=== PATIENT | female | born 1950 | race Caucasian/White ===

== ENCOUNTER 2020-02-15 13:26 | Inpatient (IN) ==
[~2020-02-15 13:26] MED LIST: HEPARIN (PORCINE) 1000 UNIT/ML 10 ML (CATH LAB USE ONLY) ONE; MIDAZOLAM HCL 1 MG/ML 2ML VIAL ONE; NITROGLYCERIN/D5W 100MCG/ML 20ML SYR ONE; NiCARDipine HCL INJ 2.5 MG/ML 10 ML AMP ONE; fentaNYL citrate 100 MCG/2 ML VIAL ONE
[2020-02-15] MEDS ORDERED: HEPARIN SOD 5,000 UNIT/0.5 ML VIAL ONE (13:30)
[2020-02-15] MEDS ORDERED: HEPARIN SOD (PORCINE) 1000 UNIT/ML 10 ML VIAL IV ONE (13:31)
[2020-02-15] MEDS ORDERED: ONDANSETRON INJ 2 MG/ML 2 ML VIAL IV STA (13:31)
[2020-02-15] MEDS ORDERED: fentaNYL citrate 100 MCG/2 ML VIAL IV STA (13:32)
--- NOTE | 2020-02-15 13:46 | Emergency Department Note ---
History of Present Illness General Chief complaint: Heart Alert Source: patient Mode of arrival: EMS History of Present Illness Provider complaint: Chest pain Onset (ago): hour(s) Location: chest and right Radiation: non-radiation Severity: severe Pain Consistency: + constant Current Pain Intensity: 8 Quality: + sharp Relieved By: + medication Associated symptoms: + nausea/vomiting and + shortness of breath; no cough, no fever/chills and no headaches This is a 70-year-old female who presents with chest pain starting at noon tod ay. She describes pain as a sharp pain on the right side of her chest. She rates an 8 out of 10 in severity. It is slightly better with the medication she was given by EMS including morphine, fentanyl and Zofran. It is associated with shortness of breath and vomiting. She denies any prior history of cardiac disease. She is not a smoker. She has a history of anxiety and hypothyroidism. Per EMS the patient was initially given atropine 0.5 mg IV as she was bradycardic and hypotensive. Her heart rate went up to 70 after that and she became normotensive. She was also given normal saline 800 mL IV prior to arrival. For her chest pain she was given morphine IV and Zofran IV initially. She had minimal relief of her pain and they did give her fentanyl 50 mcg IV per my order. The patient denies any fever, cough or cold symptoms or known exposure to COVID-19. She has had no abdominal pain, leg swelling or pain. Allergies Allergy/AdvReac Type Severity Reaction Status Date / Time Sulfa (Sulfonamide Allergy Intermediate Rash Verified 02/15/20 15:24 Antibiotics) Past Med/Surg History Family History (Updated 02/15/20 @ 16:26 by Ammon Domínguez DO) Other Coronary heart disease Hypertension Social History Preferred Language: Malay Communication Ability: Effective Election Assistant Required: No Beliefs That Will Affect Care: None marital status: Current Living Situation: Spouse Other Information That Helps Us Care for You: No Feels Safe at Home: Yes Safety Concerns: Feels Safe At This Time Smoking Status: Former smoker Second Hand Exposure: Yes ; Tobacco Cessation Education Requested by Patient: No Hx Alcohol Use: No Hx Substance Use: No Review of Systems See HPI for pertinent positives & negatives. and A total of 10 systems reviewed and were otherwise negative Physical Exam Vital Signs Vital Signs - 24 hr 02/15/20 13:31 Pulse Rate 77 Respiratory Rate 21 Blood Pressure 141/88 H Blood Pressure Mean 105 Blood Pressure Position Lying Pulse Oximetry 95 Oxygen Delivery Method Room Air Sepsis Recent Fever Within 48 Hours No Sepsis Action Taken by Nursing No Action Required Constitutional: Vital signs reviewed. Moaning. Vomited twice. Eyes: Pupils are equal round reactive to light. Conjunctiva are noninjected. ENT: Pharynx is clear without erythema or exudate. Mucous membranes are moist. Neck supple without meningeal signs. Respiratory: Clear to auscultation bilaterally. Breath sounds are equal bilaterally. Cardiovascular: Irregularly irregular rhythm. Normal rate. No rubs or gallops. GI: Soft, nondistended and nontender. Bowel sounds are present. Musculoskeletal: No peripheral edema. No lower extremity tenderness. Integumentary: No cyanosis. or jaundice. Neurological: The patient is awake and alert. No focal deficits. Psychiatric: Anxious Course Administered Medications Discontinued Medications Atropine Sulfate (Atropine Sulfate) Confirm Administered Dose 1 mg IV .STK-MED ONE Stop: 02/15/20 13:53 Last Admin: 02/15/20 14:18 Dose: Not Given Documented by: [id number] Clopidogrel Bisulfate (Plavix) Confirm Administered Dose 600 mg .ROUTE .STK-MED ONE Stop: 02/15/20 14:20 Last Admin: 02/15/20 14:29 Dose: 600 mg Documented by: [id number] Fentanyl Citrate (Fentanyl Citrate) Confirm Administered Dose 100 mcg .ROUTE .STK-MED ONE Stop: 02/15/20 13:26 Last Admin: 02/15/20 14:17 Dose: 25 mcg Documented by: [id number] Fentanyl Citrate (Fentanyl Citrate) 50 mcg IV NOW STA Stop: 02/15/20 13:33 Last Admin: 02/15/20 13:38 Dose: 50 mcg Documented by: [id number] Heparin Sodium (Porcine) (Heparin Iv Bolus ([employer]aurant [employer] Use Only)) Confirm Administered Dose 10,000 units .ROUTE .STK-MED ONE Stop: 02/15/20 13:26 Last Admin: 02/15/20 14:17 Dose: 5,000 units Documented by: [id number] Heparin Sodium (Porcine) (Heparin Sodium (Porcine)) Confirm Administered Dose 5,000 units .ROUTE .STK-MED ONE Stop: 02/15/20 13:31 Last Admin: 02/15/20 15:55 Dose: Not Given Documented by: [id number] Heparin Sodium (Porcine) (Heparin Iv Bolus) 3,000 units IV ONE ONE Stop: 02/15/20 13:32 Last Admin: 02/15/20 13:39 Dose: 3,000 units Documented by: [id number] Cosigned by: [id number] Heparin Sodium/Sodium Chloride (Heparin/Nss 1000 Unit/500ml Flush Bag) Confirm Administered Dose 3,000 units IV .STK-MED ONE Stop: 02/15/20 13:26 Last Admin: 02/15/20 14:17 Dose: 3,000 units Documented by: [id number] Metoprolol Tartrate (Lopressor) Confirm Administered Dose 5 mg IV .STK-MED ONE Stop: 02/15/20 14:00 Last Admin: 02/15/20 14:18 Dose: 2.5 mg Documented by: [id number] Midazolam HCl (Versed) Confirm Administered Dose 2 mg .ROUTE .STK-MED ONE Stop: 02/15/20 13:26 Last Admin: 02/15/20 14:17 Dose: 1 mg Documented by: [id number] Nicardipine HCl (Cardene) Confirm Administered Dose 25 mg .ROUTE .STK-MED ONE Stop: 02/15/20 13:26 Last Admin: 02/15/20 14:16 Dose: 25 mg Documented by: [id number] Nitroglycerin/Dextrose (Nitroglycerin/D5w 100 Mcg/Ml 20ml Syringe) Confirm Administered Dose 2,000 mcg .ROUTE .STK-MED ONE Stop: 02/15/20 13:26 Last Admin: 02/15/20 14:17 Dose: 2,000 mcg Documented by: [id number] Norepinephrine Bitartrate (Levophed ([employer] Use Only)) Confirm Administered Dose 8 mg .ROUTE .STK-MED ONE Stop: 02/15/20 13:54 Last Admin: 02/15/20 14:19 Dose: Not Given Documented by: [id number] Ondansetron HCl (Zofran) 4 mg IV NOW STA Stop: 02/15/20 13:32 Last Admin: 02/15/20 13:38 Dose: 4 mg Documented by: [id number] Critical Care Time Critical Care Time: Yes Total Critical Care Time: 32 I have personally spent approximately, but not less than, 32 minutes of critical care time in the direct management of this patient with STEMI and bradycardia. This includes bedside care, interpretation of diagnostic studies, and testing, discussion with consultants, patient, and family members, and other required patient management activities. These minutes are in excess of all separately billable procedures. Medical Decision Making Differential Diagnosis STEMI, Takatsubo, aortic dissection, aortic aneurysm, RCA infarct, dysrhythmia Medical Records Attestation: I reviewed the patient's medical records. I did perform a limited focused review of portions of the patient's old chart on the electronic medical record. The patient has had no prior visits to this hospital. Home Medications Current Medication List: was personally reviewed by me Laboratory Data Attestation: I reviewed the patient's lab results. Result diagrams: 02/15/20 13:35 02/15/20 13:35 Lab Results 02/15/20 02/15/20 02/15/20 Range/Units 13:35 13:35 13:35 WBC 7.81 (4.8-10.8) K/uL RBC 4.58 (4.2-5.4) M/uL Hgb 13.5 (12.0-16.0) g/dL POC Hgb (12.0-16.0) g/dl Hct 42.9 (37-47) % POC Hct (37-47) % MCV 93.7 (80-100) fL MCH 29.5 (25-34) pg MCHC 31.5 L (32-36) g/dL RDW Std Deviation 45.2 (36.4-46.3) fL RDW Coeff of Eric 13.3 (11.5-14.5) % Plt Count 246 (130-400) K/uL MPV 9.8 (7.4-10.4) fL Immature Gran % (Auto) 0.4 % Neut % (Auto) 64.4 % Lymph % (Auto) 26.5 % [place] % (Auto) 7.7 % Eos % (Auto) 0.6 % Baso % (Auto) 0.4 % Immature Gran # (Auto) 0.03 H (0.00-0.02) K/uL Neut # (Auto) 5.03 (1.4-6.5) K/uL Lymph # (Auto) 2.07 (1.2-3.4) K/uL [place] # (Auto) 0.60 H (0.11-0.59) K/uL Eos # (Auto) 0.05 (0-0.5) K/uL Baso # (Auto) 0.03 (0-0.2) K/uL PT 10.5 (9.0-12.0) Seconds INR 1.0 (0.9-1.1) APTT 28.1 (21.0-31.0) Seconds PTT Ratio 1.0 Activ Coag Time Kaolin (94-140) SECONDS POC Sodium (135-144) mmol/L Sodium 142 (136-145) mmol/L POC Potassium (3.3-5.0) mmol/L Potassium 4.0 (3.5-5.1) mmol/L POC Chloride (101-112) mmol/L Chloride 111 H (98-107) mmol/L Carbon Dioxide 23 (21-32) mmol/L POC Total CO2 (24-31) mmol/L Anion Gap 8.0 (3-11) POC Anion Gap (16-25) mmol/L POC BUN (7-18) mg/dl BUN 13 (7-18) mg/dl Creatinine 0.74 (0.6-1.2) mg/dl POC Creatinine (0.6-1.3) mg/dl Est Cr Clr Drug Dosing Not Reportable Est GFR ( Amer) 94.5 Est GFR (Non-Af Amer) 81.5 BUN/Creatinine Ratio 17.3 (10-20) Glucose 115 H (70-99) mg/dl POC Glucose (other) (70-99) mg/dl Calcium 8.0 L (8.5-10.1) mg/dl POC Ioniz Calcium Maria E (1.12-1.32) mmol/l Magnesium 2.0 (1.8-2.4) mg/dl Total Bilirubin 0.4 (0.2-1) mg/dl AST 21 (15-37) U/L ALT 22 (12-78) U/L Alkaline Phosphatase 95 (45-117) U/L Total Creatine Kinase 66 (26-192) U/L CK-MB (CK-2) < 1.0 (0.5-3.6) ng/ml CK/CKMB % Calc TNP Troponin I < 0.015 (0-0.045) ng/ml Total Protein 6.9 (6.4-8.2) gm/dl Albumin 3.4 (3.4-5.0) gm/dl Globulin 3.5 (2.5-4.0) gm/dl Albumin/Globulin Ratio 1.0 (0.9-2) Lipase 49 L (73-393) U/L TSH 0.401 (0.300-4.500) uIu/ml Specimen Hemolysis 02/15/20 02/15/20 Range/Units 13:40 13:59 WBC (4.8-10.8) K/uL RBC (4.2-5.4) M/uL Hgb (12.0-16.0) g/dL POC Hgb 13.6 (12.0-16.0) g/dl Hct (37-47) % POC Hct 40 (37-47) % MCV (80-100) fL MCH (25-34) pg MCHC (32-36) g/dL RDW Std Deviation (36.4-46.3) fL RDW Coeff of Eric (11.5-14.5) % Plt Count (130-400) K/uL MPV (7.4-10.4) fL Immature Gran % (Auto) % Neut % (Auto) % Lymph % (Auto) % [place] % (Auto) % Eos % (Auto) % Baso % (Auto) % Immature Gran # (Auto) (0.00-0.02) K/uL Neut # (Auto) (1.4-6.5) K/uL Lymph # (Auto) (1.2-3.4) K/uL [place] # (Auto) (0.11-0.59) K/uL Eos # (Auto) (0-0.5) K/uL Baso # (Auto) (0-0.2) K/uL PT (9.0-12.0) Seconds INR (0.9-1.1) APTT (21.0-31.0) Seconds PTT Ratio Activ Coag Time Kaolin 323 H (94-140) SECONDS POC Sodium 142 (135-144) mmol/L Sodium (136-145) mmol/L POC Potassium 4.0 (3.3-5.0) mmol/L Potassium (3.5-5.1) mmol/L POC Chloride 107 (101-112) mmol/L Chloride (98-107) mmol/L Carbon Dioxide (21-32) mmol/L POC Total CO2 23 L (24-31) mmol/L Anion Gap (3-11) POC Anion Gap 17.0 (16-25) mmol/L POC BUN 14 (7-18) mg/dl BUN (7-18) mg/dl Creatinine (0.6-1.2) mg/dl POC Creatinine 0.7 (0.6-1.3) mg/dl Est Cr Clr Drug Dosing Est GFR ( Amer) Est GFR (Non-Af Amer) BUN/Creatinine Ratio (10-20) Glucose (70-99) mg/dl POC Glucose (other) 121 H (70-99) mg/dl Calcium (8.5-10.1) mg/dl POC Ioniz Calcium Maria E 1.06 L (1.12-1.32) mmol/l Magnesium (1.8-2.4) mg/dl Total Bilirubin (0.2-1) mg/dl AST (15-37) U/L ALT (12-78) U/L Alkaline Phosphatase (45-117) U/L Total Creatine Kinase (26-192) U/L CK-MB (CK-2) (0.5-3.6) ng/ml CK/CKMB % Calc Troponin I (0-0.045) ng/ml Total Protein (6.4-8.2) gm/dl Albumin (3.4-5.0) gm/dl Globulin (2.5-4.0) gm/dl Albumin/Globulin Ratio (0.9-2) Lipase (73-393) U/L TSH (0.300-4.500) uIu/ml Specimen Hemolysis ECG Data Attestation: I personally reviewed and interpreted this ECG as follows: Indication: + chest pain Rate (beats per minute): 87 Rhythm: + atrial fibrillation ECG ST segments: + ST depression (Lateral, anteriorly), + ST elevation (Inferior) and + T-wave inversions ECG Findings: no PVCs Comparison ECG Date: no prior available Blood Pressure Blood Pressure Findings: Elevated blood pressure Blood Pressure Disposition: further management by hospitalist [facility] Narrative I did provide prehospital medical command for the patient. The patient was approximately 10 to 15 minutes out. She initially was bradycardic and hypotensive and was given atropine 0.5 mg IV. She was also given normal saline IV. Her blood pressure normalized. Her heart rate went into the 70s. She was given IV morphine and Zofran prior to the call. She was also given aspirin. I did recommend additional IV fentanyl should she have persistent pain but recommended against further morphine/atropine or any nitroglycerin. They could not transmit the prehospital EKG and so the ribbon cutter was notified. Dr. George was in a procedure and so Dr. Rapp of cardiology would see the patient in the ED in his place. I did evaluate the patient immediately on arrival as noted above. Her left AC IV came out while moving the patient. Additional IV access was established. I did treat her with IV fentanyl and Zofran as she is vomiting and still having 8 out of [address] an order for continuous cardiac monitoring. The monitor showed normal sinus rhythm rate of 90. I did order and personally review the patient's 12-lead EKG as described above. She has changes consistent with an inferior wall STEMI. I did order and review the patient's blood work as noted in the electronic medical record. CBC is unremarkable without leukocytosis or anemia. Electrolytes are unremarkable other than a chloride of 111. Troponin is negative. She has mild hypocalcemia. Dr. Alexander did evaluate the patient in the ED as well. He recommended giving her IV heparin and the patient would go directly to the cardiac [employer]. I did order 3000 units of IV heparin. The patient was taken emergently for cardiac catheterization. Impression & Plan STEMI (ST elevation myocardial infarction), Bradycardia Discharge Plan Visit Data *Final* Discharge Date/Time: 02/15/20 13:44 Chief Complaint: Heart Alert ED Provider: Sang Pedersen Discharge Problem: STEMI (ST elevation myocardial infarction), Bradycardia Patient Disposition: Still a Patient Discharge Instructions Interventions: ED Discharge Assessment Last Done: 02/15/20 13:44 Discharge Problem: STEMI (ST elevation myocardial infarction) Qualifiers: Involved coronary artery: right coronary artery Qualified Code(s): I21.11 - ST elevation (STEMI) myocardial infarction involving right coronary artery
[2020-02-15] MEDS ORDERED: ATROPINE SULFATE 0.1 MG/ML 10ML SYR IV ONE (13:52)
[2020-02-15 13:53] LABS: iSTAT Creatinine 0.7 mg/dl (0.6-1.3); iSTAT Hemoglobin 13.6 g/dl (12.0-16.0); iSTAT Ionized Calcium 1.06 mmol/l (1.12-1.32)
[2020-02-15] MEDS ORDERED: NOREPINEPHRINE BITARTRATE 1 MG/ML 4 ML VIAL (CATH LAB USE ONLY) ONE (13:53)
[2020-02-15 13:56] LABS: Basophils # (auto) 0.03 K/uL (0-0.2); Basophils % (auto) 0.4 %; Eosinophils # (auto) 0.05 K/uL (0-0.5); Eosinophils % (auto) 0.6 %; Hematocrit (blood only) 42.9 % (37-47); Hemoglobin 13.5 g/dL (12.0-16.0); Immature Granulocytes # (auto) 0.03 K/uL (0.00-0.02); Immature Granulocytes % (auto) 0.4 %; Lymphocytes # (auto) 2.07 K/uL (1.2-3.4); Lymphocytes % (auto) 26.5 %; Mean Corpuscular Hemoglobin 29.5 pg (25-34); Mean Corpuscular Hgb Conc 31.5 g/dL (32-36); Mean Corpuscular Volume 93.7 fL (80-100); Mean Platelet Volume 9.8 fL (7.4-10.4); Monocytes % (auto) 7.7 %; Neutrophils # (auto) 5.03 K/uL (1.4-6.5); Neutrophils % (auto) 64.4 %; Platelet Count 246 K/uL (130-400); RDW Coefficient of Variation 13.3 % (11.5-14.5); RDW Standard Deviation 45.2 fL (36.4-46.3); Red Blood Count 4.58 M/uL (4.2-5.4); White Blood Count 7.81 K/uL (4.8-10.8)
[2020-02-15] MEDS ORDERED: METOPROLOL TARTRATE 1 MG/ML VIAL IV ONE (13:59)
[2020-02-15] MEDS ORDERED: CLOPIDOGREL BISULFATE 300 MG TAB ONE (14:19)
[2020-02-15 14:21] LABS: Partial Thromboplastin Time 28.1 Seconds (21.0-31.0); Prothrombin Time 10.5 Seconds (9.0-12.0)
[2020-02-15 14:23] LABS: Alanine Aminotransferase 22 U/L (12-78); Albumin Level 3.4 gm/dl (3.4-5.0); Aspartate Aminotransferase 21 U/L (15-37); BUN Creatinine Ratio 17.3 (10-20); Blood Urea Nitrogen 13 mg/dl (7-18); Carbon Dioxide 23 mmol/L (21-32); Chloride 111 mmol/L (98-107); Est GFR (African American) 94.5; Est GFR (Non-African American) 81.5; Glucose 115 mg/dl (70-99); Lipase 49 U/L (73-393); Sodium 142 mmol/L (136-145)
--- NOTE | 2020-02-15 14:25 | Cardiology Consultation ---
Date of Consultation February 15, 2020 Assessment & Plan (1) S/P right coronary artery (RCA) stent placement: (2) Atrial fibrillation: ASSESSMENT/PLAN: 1. Inferior STEMI: Symptoms and finding on ECG suggest RCA STEMI. In the ER, recommend heparin 3000 units IV x1. Nitroglycerin was not given as she demonstrated signs and symptoms of inferior infarct. Continue aspirin. Emergent cardiac catheterization recommended. Risks and benefits of the procedure were discussed with her in detail. Her was contacted via telephone to make him aware as well. She was promptly taken to the cardiac catheterization lab. 2. Atrial fibrillation: In this is not part of her medical history and may be due to the fact that she was actively ischemic. She had received atropine in the field for bradycardia. This will likely be self limited. Continue to monitor. 3. Disposition: Emergent cardiac catheterization for inferior STEMI. Dr. George of interventional Cardiology was contacted and patient care discussed. Patient care discussed with emergency department physician, Dr. Pedersen. Addendum: Cardiac catheterization demonstrated RCA occlusion. She underwent PCI by Dr. George. Her was personally updated via telephone and any questions were answered. Critical care team notified (Rick Mcintosh). Dr. Busch (Hospitalist attending) was contacted and plan of care discussed. Recommend dual anti- platelet therapy as outlined by Interventional Cardiology, recommend high-intensity statin therapy, beta-iliana, and MATA-inhibitor as tolerated. Recommend echocardiogram. She was transferred to the ICU. 40 minutes critical care time spent, including time spent in direct management of her STEMI, as well as coordinating care with multiple providers and updating family. History of Present Illness Reason for Consultation: Inferior STEMI "Heart Alert" Requesting Physician: Dr. Pedersen Attending Physician: Arslan George MD History of Present Illness Mrs. Hart is a pleasant 70-year-old female with a history significant for chronic back pain and hypothyroidism. She called EMS earlier today with chest pain and was found to have inferior ST elevations on ECG performed in the field. The decision was made to transfer her to [facility] via helicopter as a heart alert concerning for RCA STEMI. In the field, she was noted to be hypotensive and received normal saline 800 mL. She developed bradycardia with heart rates in the 40s and received atropine 0.5 mg which improved her heart rate. She received aspirin 325 mg as well as morphine for pain control. She states that yesterday she had intermittent chest discomfort throughout the day and did not feel well. Then today at approximately noon, she had a sharp, severe pain in her chest that radiated to the right side of her chest. She was short of breath. She denies syncope, near syncope, palpitations. She denies fevers, chills, or bleeding such as melena, hematochezia, or hematuria. While in the emergency department, she developed nausea and vomiting. When connected to telemetry, it was noted that she was in atrial fibrillation with heart rate in the 70s. ECG done in the emergency department once again demonstrated inferior ST elevations, and atrial fibrillation as the rhythm. She has not eaten since last evening. Review of systems: As above. Review of systems otherwise negative/unremarkable. Family history: No known premature CAD. Social history: She denies tobacco or alcohol abuse. She is and lives with her at home (Javier). They have 4 children. She is unaccompanied. Allergies Allergy/AdvReac Type Severity Reaction Status Date / Time Sulfa (Sulfonamide Allergy Intermediate Rash Verified 02/15/20 15:24 Antibiotics) Patient History Family History (Updated 02/15/20 @ 16:26 by Ammon Domínguez DO) Other Coronary heart disease Hypertension Social History Preferred Language: Thai Communication Ability: Effective Paper Feeder Required: No Beliefs That Will Affect Care: None marital status: Current Living Situation: Spouse Other Information That Helps Us Care for You: No Feels Safe at Home: Yes Safety Concerns: Feels Safe At This Time Smoking Status: Former smoker Second Hand Exposure: Yes ; Tobacco Cessation Education Requested by Patient: No Hx Alcohol Use: No Hx Substance Use: No Physical Exam Physical Exam: Gen.: She appears uncomfortable and in some degree of distress. Alert and oriented. HEENT: Anicteric sclera. Neck: No JVD. Cardiac: No ventricular heave. Irregularly regular. Normal S1-S2. No murmurs, r ubs, or gallops. Pulmonary: Clear to auscultation bilaterally without wheezes, rales, or rhonchi. Abdomen: Soft, nontender, nondistended, with normoactive bowel sounds. No bruits noted. Extremities: 2+ radial pulses bilaterally. 2+ posterior tibialis pulses bilaterally. No edema or cyanosis. Psychiatric: Affect appears appropriate. Results & Data ([facility]) Vital Signs (Past 12 Hours) Vital Signs Pulse Resp BP Pulse Ox 02/15/20 13:31 77 21 141/88 H 95 Laboratory Results Laboratory Results - last 24 hr 02/15/20 02/15/20 02/15/20 13:35 13:35 13:35 WBC 7.81 RBC 4.58 Hgb 13.5 POC Hgb Hct 42.9 POC Hct MCV 93.7 MCH 29.5 MCHC 31.5 L RDW Std Deviation 45.2 RDW Coeff of Eric 13.3 Plt Count 246 MPV 9.8 Immature Gran % (Auto) 0.4 Neut % (Auto) 64.4 Lymph % (Auto) 26.5 [place] % (Auto) 7.7 Eos % (Auto) 0.6 Baso % (Auto) 0.4 Immature Gran # (Auto) 0.03 H Neut # (Auto) 5.03 Lymph # (Auto) 2.07 [place] # (Auto) 0.60 H Eos # (Auto) 0.05 Baso # (Auto) 0.03 PT 10.5 INR 1.0 APTT 28.1 PTT Ratio 1.0 Activ Coag Time Kaolin POC Sodium Sodium 142 POC Potassium Potassium 4.0 POC Chloride Chloride 111 H Carbon Dioxide 23 POC Total CO2 Anion Gap 8.0 POC Anion Gap POC BUN BUN 13 Creatinine 0.74 POC Creatinine Est Cr Clr Drug Dosing Not Reportable Est GFR ( Amer) 94.5 Est GFR (Non-Af Amer) 81.5 BUN/Creatinine Ratio 17.3 Glucose 115 H POC Glucose (other) Calcium 8.0 L POC Ioniz Calcium Maria E Magnesium 2.0 Total Bilirubin Pending AST 21 ALT 22 Alkaline Phosphatase Pending Total Creatine Kinase Pending CK-MB (CK-2) Pending Troponin I Pending Total Protein Pending Albumin 3.4 Globulin Pending Albumin/Globulin Ratio Pending Lipase 49 L TSH Pending Specimen Hemolysis 02/15/20 02/15/20 13:40 13:59 WBC RBC Hgb POC Hgb 13.6 Hct POC Hct 40 MCV MCH MCHC RDW Std Deviation RDW Coeff of Eric Plt Count MPV Immature Gran % (Auto) Neut % (Auto) Lymph % (Auto) [place] % (Auto) Eos % (Auto) Baso % (Auto) Immature Gran # (Auto) Neut # (Auto) Lymph # (Auto) [place] # (Auto) Eos # (Auto) Baso # (Auto) PT INR APTT PTT Ratio Activ Coag Time Kaolin 323 H POC Sodium 142 Sodium POC Potassium 4.0 Potassium POC Chloride 107 Chloride Carbon Dioxide POC Total CO2 23 L Anion Gap POC Anion Gap 17.0 POC BUN 14 BUN Creatinine POC Creatinine 0.7 Est Cr Clr Drug Dosing Est GFR ( Amer) Est GFR (Non-Af Amer) BUN/Creatinine Ratio Glucose POC Glucose (other) 121 H Calcium POC Ioniz Calcium Maria E 1.06 L Magnesium Total Bilirubin AST ALT Alkaline Phosphatase Total Creatine Kinase CK-MB (CK-2) Troponin I Total Protein Albumin Globulin Albumin/Globulin Ratio Lipase TSH Specimen Hemolysis Diagnostic Findings Telemetry strip performed in the field personally reviewed: Inferior ST elevation. ECGs personally reviewed: ECG 09/10/2019 [facility]: Sinus rhythm 70 bpm. Incomplete right bundle branch block. ECG performed in the ER 02/15/2020 personally reviewed: Atrial fibrillation. Inferior ST elevation. PG Care Time/CCT Total # of Minutes Spent Total Time Spent with Patient: Total time spent is greater than 50% in coordination of care (as documented) at patient's floor/unit and/or counseling patient: Critical Care Time: Yes Total Critical Care Time: 40 Coding Level of Care Code None Diagnoses S/P right coronary artery (RCA) stent placement Z95.5 Atrial fibrillation I48.91 Additional Codes Critical Care Time - Critical Care Time: Yes ([id number]) Comment CRITICAL CARE [id number] 40 MIN
[2020-02-15 14:38] LABS: Alkaline Phosphatase 95 U/L (45-117); Bilirubin,Total 0.4 mg/dl (0.2-1); Creatine Kinase 66 U/L (26-192); Creatine Kinase MB < 1.0 ng/ml (0.5-3.6); Globulin 3.5 gm/dl (2.5-4.0); Thyroid Stimulating Hormone 0.401 uIu/ml (0.300-4.500); Total Protein 6.9 gm/dl (6.4-8.2); Troponin I < 0.015 ng/ml (0-0.045)
[2020-02-15] MEDS ORDERED: ICU PROTOCOL FOR HYPERGLYCEMIA PRN (14:38)
--- NOTE | 2020-02-15 14:41 | History & Physical Report ---
Date of Service February 15, 2020 Assessment & Plan (1) STEMI (ST elevation myocardial infarction): (2) S/P right coronary artery (RCA) stent placement: History of Present Illness Primary Care Provider: NO PCP Past Med/Surg History Medical History Anxiety Hypothyroidism Social History Preferred Language: Cypriot marital status: Current Living Situation: Spouse Feels Safe at Home: Yes Smoking Status: Never smoker Results & Data Results & Data ([facility]) Vital Signs (Past 12 Hours) Vital Signs Pulse Resp BP Pulse Ox 02/15/20 14:18 120 H 140/80 02/15/20 13:31 77 21 141/88 H 95 Code Status & VTE Plan VTE Prophylaxis Plan VTE Prophylaxis will be ordered: Yes PG Care Time/CCT Total # of Minutes Spent Total Time Spent with Patient: Total time spent is greater than 50% in coordination of care (as documented) at patient's floor/unit and/or counseling patient: Coding Diagnoses STEMI (ST elevation myocardial infarction) I21.3 S/P right coronary artery (RCA) stent placement Z95.5
[2020-02-15] MEDS ORDERED: ONDANSETRON INJ 2 MG/ML 2 ML VIAL IV PRN (14:50)
[2020-02-15] MEDS ORDERED: NITROGLYCERIN SL 0.4 MG/TAB TAB SL PRN (14:50)
--- NOTE | 2020-02-15 14:59 | Cardiac Catheterization ---
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 Cardiac Status Clinical evaluation leading to the procedure CAD Presenation: STEMI Anginal Classification: CCS IV Heart Failure: No Cardiogenic Shock within 24 Hours: No Cardiac Arrest within 24 Hours: No Imaging Studies Past 6 Months: No Stress Studies Past 6 Months: No Diagnostic Physicians Name: Arslan George MD Status: Emergency Closure Device Percutaneous Entry Location: Radial Closure Device: Radial Band Recommendations: PCI without planned CABG PCI Indication: Immediate PCI for STEMI Lesion Segment Name: mid RCA Culprit Artery: Yes Stenosis Prior to Rx (%): 100 Chronic Total Occlusion: No IVUS: No FFR: No Pre-Procedure JIMBO Flow: 0 Previously Treated Lesion: No Lesion Complexity: Non-High/Non-C Lesion Length (mm): 15 Thrombus Present: Yes Bifurcation Lesion: No Guidewire Across Lesion: Stenosis Post-Procedure (%): 0 Post-Procedure JIMBO Flow: 3 Devices(s) Deployed: Yes Yes Intraprocedure Events Significant Disection: No Perforation: No Cardiac Cath Procedure Full Procedure Date February 15, 2020 Pre-Procedure Diagnosis Pre-Procedure Diagnosis: STEMI AUC Score AUC Score: 9 Post-Procedure Diagnosis Post-Procedure Diagnosis: Severe CAD, Successful PCI and Normal Intracardiac Pressures Procedure(s) Performed Procedure(s) Performed: Coronary Angiography, Left Heart Cath and Drug Eluting Stent Vmware Architect Arslan George MD Try On Baster(s) Myla Estimated Blood Loss Estimated Blood Loss: 10 Medication(s) Medication(s): Fentanyl, Heparin, Lidocaine 1%, Nicardipine, Nitroglycerin and Versed Summary of Findings Indication: STEMI/Heart Alert Access: 6Fr slender right radial artery Catheters: Ikari 3.5 guide, JL3.5, pigtail Findings: LM - Angiographically normal LAD - Medium caliber, angiographically normal Circumflex - Small, angiographically normal RCA - Dominant, mild diffuse proximal disease, 100% mid RCA acute occlusion. LVEDP - 12 -- PCI -- Antithrombotic therapy: Heparin, Clopidogrel Procedure: RCA cannulated with Ikari 3.5 guide BMW wire passed across lesion into distal vessel Mid RCA lesion predilated with 2.5 compliant balloon Dilated lesion stented with 3.0 x 26 mm [place] Stent post-dilated with 3.5 noncompliant balloon IC vasodilators administered for spasm Post procedure JIMBO 3 flow, stent well expanded with minimal residual stenosis and no apparent cardiac complications. Arterial Closure: TR Band Summary: 1. Inferior STEMI/Acute 100% mid RCA occlusion 2. Minimal non-culprit vessel coronary artery disease 3. Normal intracardiac filling pressure 4. Successful PCI of mid RCA with single drug-eluting stent (3.0 x 26mm Kalen; post-dilated with 3.5 NC). 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 Trend troponins until peak, Check Echo Uptitrate beta-iliana/MATA as BP allows High-dose statin Consult cardiac Rehab Hemodynamics Rest Ao:: 141/67/97 Final Ao: 100/59/56 LV: 95/14-- Recommendations Recommendations: PCI without planned CABG Specimens Specimens: None Radiation Exposure (mGy) -- Contrast (mls) 80 Drains Drains: none Anesthesia moderate Procedural Complication(s) None Disposition ICU I attest to the content of the Intraoperative Record and any orders documented therein. Any exceptions are noted below. [facility] Card Cath Procedure Codes Cardiac Catheterization Procedure 1: Cardiovascular Cath Procedures: 00724 Coronaries and LHC (+/-LV) Moderate Sedation Procedure 1: Sedation/Anesthesia: 33806 Mod Sedation by the same physician;Init15 Min Child Age 5 & Up Procedure 2: Sedation/Anesthesia: 71450 Mod Sedation by the same physician; Ea [id number] Minutes Stenting Procedure 1: Cardiovascular Stent Procedures: 49612 Perc transluminal revascularization of acute sub/total occl, aMI PG Care Time/CCT Total # of Minutes Spent Total Time Spent with Patient: Total time spent is greater than 50% in coordination of care (as documented) at patient's floor/unit and/or counseling patient:
--- NOTE | 2020-02-15 15:06 | Critical Care Consultation ---
Date of Consultation February 15, 2020 Assessment & Plan (1) Admitted to intensive care unit: Reason Critically Ill: Status post PCI with successful deployment of drug- eluting stent to the right coronary artery. POD #0 Neuro - [facility] ICU: Alert and oriented x3 Cardiac - Hemodynamically stable to systolic pressure 101 Status post drug-eluting stent to the RCA Continue clopidogrel, aspirin 81 mg p.o. daily, atorvastatin 80 mg p.o. daily, lisinopril 5 mg p.o. daily, metoprolol tartrate 12.5 mg p.o. twice daily Respiratory - Oxygenating well on room air GI - No nausea or vomiting No history of GERD RENAL/LYTES - Creatinine 0.74 Electrolytes balance - No indication for Castillo catheter ENDO - Hypothyroidism -continue levothyroxine No history of diabetes mellitus HEME - Hemoglobin 13.6 ID - No indication of infection LINES/IV ACCESS - Peripheral IV TR band to the right radial artery DVT PROPHYLAXIS - Antiplatelet therapy per cardiology Ambulate as tolerated CCT: [ ] minutes independent of any procedures Thank you for including us in the care of this patient. Please refer to Dr. Gregory Calvert's addendum for further recommendations. (2) STEMI (ST elevation myocardial infarction): Prehospital EKG revealed ST elevation in the inferior leads. Patient taken to the cardiac Medical Educator urgently upon arrival and percutaneous cardiac intervention was completed with successful deployment of a drug-eluting stent to the right coronary artery Patient currently with TR band. Patient currently chest pain-free Patient with stable hemodynamics with a systolic blood pressure of 101. Heart rate in the 70s. SaO2 is 94% on room air. (3) S/P right coronary artery (RCA) stent placement: TR band over the right radial artery Follow protocol No active bleeding at the site (4) Hypothyroidism: Continue levothyroxine (5) Anxiety: Patient reports that she is on Lorazepam 1 mg daily for anxiety and restlessness (6) Bradycardia: Resolved Patient received atropine 0.5 mg in the field prior to arrival Currently rate is in the 70s (7) History of tobacco abuse: Patient states that she quit smoking approximately 30 years ago Thank you for including us in the care of this patient. We will continue to follow patient in the intensive care unit Please refer to Dr. Bergeron's addendum for further recommendations. Supervising Physician Co-Signing Physician Notes Patient seen and examined. EMR reviewed. Imaging independently reviewed. Discussed with critical care MATILDA. 70-year-old female presented with right-sided chest discomfort and symptomatic bradycardia. EKG showed ST elevation KS in the inferior leads. She was flown directly to the Medical Educator. She underwent cardiac catheterization was found to have an occluded right coronary artery. She was treated with drug-eluting stent. She is brought to the ICU with a TR band in place. She is now asymptomatic. Continue medical management per cardiology. Will likely need cardiac rehab as an outpatient. Glycemic control per ICU protocol. Advance diet and out of bed as tolerated. Discussed with patient at bedside as well as critical care MATILDA and ICU nursing staff. History of Present Illness Attending Physician: Arslan George MD History of Present Illness Attending: Dr. Bergeron There is a 70-year-old female that has a past medical history including hypothyroidism, chronic back pain, chronic narcotic use, tobacco abuse (quit 30 years ago). The patient reports that she was in good health until yesterday when she began having chest pain. She thought it may be indigestion and ignored symptoms. She went to bed and did well overnight. She woke up this morning had a small breakfast and took her to a doctor's appointment at 10 AM. Upon arrival home she began having chest pain again which radiated into her right arm. She describes this pain as crushing but denies any shortness of breath. She called 911. When EMS arrived they performed an EKG and found that she had ST elevations in the inferior leads. They contacted medical command and arrange for helicopter transport from [place] to [facility]. The patient was taken emergently to the cardiac catheterization lab by Dr. Yrn George where she was found to have occlusion of her RCA. Stenting was performed successfully. The patient did develop some hypotension and bradycardia prior to arrival to the hospital and received fluid boluses as well as atropine 0.5 mg. Since arrival at the hospital she has been relatively stable with her hemodynam ics. Patient was then transferred to the intensive care unit in room 107 where she was seen and examined on arrival. Patient states that her chest pain is completely resolved. She has no further chest pain in the shoulder or in the back. She does report hypothyroidism and states that she takes Synthroid. She also reports several years of back pain and reports that she takes morphine twice a day as prescribed by her primary care physician. When asked about surgical repair she says she is afraid of surgery and will not have surgery done. PDMP was reviewed and reveals 30-day average MME per day at 54. Last prescription was 02/05/2024 morphine sulfate ER 30 mg tablets. 60 tablets were prescribed. Prescriber was Julián Rosenberg PA-C. The patient denies any other acute complaints. She has no nausea or vomiting. No fever no chills no sweats no rigors. She has no recent travel. She has no loss of taste or smell. She has no other respiratory complaints. 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 Beliefs That Will Affect Care: None marital status: Current Living Situation: Spouse Other Information That Helps Us Care for You: No Feels Safe at Home: Yes Safety Concerns: Feels Safe At This Time Smoking Status: Former smoker Second Hand Exposure: Yes ; Tobacco Cessation Education Requested by Patient: No Hx Alcohol Use: No Hx Substance Use: No Review of Systems Review of Systems: All systems reviewed & are unremarkable except as noted in HPI & below Physical Exam Physical Exam: GENERAL : No acute distress EYES: No icterus, gaze conjugate NOSE: No evidence of epistaxis MOUTH: No lesions or candidiasis NECK: Supple LUNGS: CTA B/L, no wheezes, rales or rhonchi HEART: Regular, rate controlled ABDOMEN: Soft, NT, ND, BS Present EXTREMITIES: No LE edema, pedal pulses intact. TR band is in place at the right radial artery. There is adequate capillary refill. NEURO: A&OX3 Results & Data Results & Data ([facility]) Vital Signs (Past 12 Hours) Vital Signs Pulse Resp BP Pulse Ox 02/15/20 14:18 120 H 140/80 02/15/20 13:31 77 21 141/88 H 95 Laboratory Results 02/15/20 13:35 02/15/20 13:35 INR 1.0 (0.9-1.1) 06/12/20 13:35 Diagnostic Findings No radiographic imaging was completed outside of the cardiac Medical Educator Coding Level of Care Code Critical Care 1st 30-74 mins Diagnoses Admitted to intensive care unit Z78.9 STEMI (ST elevation myocardial infarction) I21.3 S/P right coronary artery (RCA) stent placement Z95.5 Hypothyroidism E03.9 Anxiety F41.9 Bradycardia R00.1 History of tobacco abuse Z87.891 Time Spent (min) 40
--- NOTE | 2020-02-15 16:29 | History & Physical Report ---
Date of Service February 15, 2020 Assessment & Plan (1) STEMI (ST elevation myocardial infarction): EKG with evidence of STEMI in right coronary distribution, ST depression in V1, V2 with reciprocal changes emergent LHC with ANGIE in the RCA, 100% occlusion Plavix, aspirin, Lipitor 80mg, Lisinopril, metoprolol admitted to ICU with cardiology and ICU following (2) S/P right coronary artery (RCA) stent placement: ANGIE to the RCA on aspirin and Plavix (3) Radicular pain of both lower extremities: chronic issue, takes Morphine chronically (4) Lumbar disc herniation: patient not interested in surgery follows for pain control Admission and Anticipated Discharge Date Admission Date: February 15, 2020 History of Present Illness Chief Complaint: I had terrible chest pain Primary Care Provider: ELLIOT PCP 70 yo female with no known history of coronary disease, only h/o hypothyroidism and chronic low back pain on Morphine, presented to the ED at [facility] via EMS with crushing right sided chest pain. She first experienced the pain last night, thought it was some indigestion, gave no history of exertional angina. The pain went away and she was able to sleep. She ate breakfast this morning, took her to a doctor's visit. She then experienced severe right sided chest pain, radiated to the right arm, dyspnea, nausea. EMS arrived and EKG showed evidence of right sided acute [place]. She was rushed to ED at [facility] and she was flown to [facility] after heart alert called. Emergent heart cath showed acute total occlusion in RCA, treated with one ANGIE in the RCA. Other vessels were patent. She was transferred to ICU in stable condition. Currently she resting, no chest pain, no dyspnea, no nausea. No fever or chills. Labs reviewed, they are stable. HR in the 80's, BP stable, not requiring any oxygen. Called her to let him know she was doing well. Allergies Allergy/AdvReac Type Severity Reaction Status Date / Time Sulfa (Sulfonamide Allergy Intermediate Rash Verified 02/15/20 15:24 Antibiotics) Past Med/Surg History Medical History (Updated 02/15/20 @ 16:26 by Ammon Domínguez DO) Anxiety History of tobacco abuse Hypothyroidism Lumbar disc herniation Radicular pain of both lower extremities Family History (Updated 02/15/20 @ 16:26 by Ammon Domínguez DO) Other Coronary heart disease Hypertension Social History Preferred Language: Tunisian Communication Ability: Effective Emergency Medical Tech Required: No Beliefs That Will Affect Care: None marital status: Current Living Situation: Spouse Other Information That Helps Us Care for You: No Feels Safe at Home: Yes Safety Concerns: Feels Safe At This Time Smoking Status: Former smoker Second Hand Exposure: Yes ; Tobacco Cessation Education Requested by Patient: No Hx Alcohol Use: No Hx Substance Use: No Review of Systems Review of Systems: All systems reviewed & are unremarkable except as noted in HPI & below Physical Exam Constitutional: WD/WN, vitals as above Eyes: PERRL, conjunctivae normal, anicteric sclerae ENMT: external ear and nose normal, oropharynx normal Neck: trachea midline, no thyromegaly Respiratory: normal respiratory effort, lungs clear to auscultation Cardiovascular: RRR, no murmur, no edema Gastrointestinal (Abdomen): normal bowel sounds, soft, nontender, no hepatosplenomegaly Musculoskeletal: no cyanosis or clubbing, extremities motor strength 5/5 Skin: no rashes, warm and dry Neurologic: patellar DTR's 2+ bilat, sensation intact and PERRL, EOMI, accommodation nl, no face palsy, no dysarthria Psychiatric: A+Ox3, euthymic affect Lymphatic: no cervical or axillary lymphadenopathy Results & Data Results & Data ([facility]) Vital Signs (Past 12 Hours) Vital Signs Temp Pulse Pulse Resp BP BP Pulse Ox 02/15/20 16:00 76 17 97 02/15/20 15:53 101 H 18 108/66 78 L 02/15/20 15:45 93 H 17 77 L 02/15/20 15:38 70 17 107/64 95 02/15/20 15:30 74 21 95 02/15/20 15:25 76 16 114/70 94 02/15/20 15:23 84 19 114/70 94 02/15/20 15:15 79 18 94 02/15/20 15:08 86 17 108/75 02/15/20 15:00 82 21 94 02/15/20 14:53 114 H 20 89/67 L 100 02/15/20 14:51 117 H 20 100 02/15/20 14:43 123 H 13 104/60 100 02/15/20 14:38 36.3 C L 126 H 20 104/60 99 02/15/20 14:18 120 H 140/80 02/15/20 13:31 77 21 141/88 H 95 Laboratory Results Laboratory Results - last 24 hr 02/15/20 02/15/20 02/15/20 13:35 13:35 13:35 WBC 7.81 RBC 4.58 Hgb 13.5 POC Hgb Hct 42.9 POC Hct MCV 93.7 MCH 29.5 MCHC 31.5 L RDW Std Deviation 45.2 RDW Coeff of Eric 13.3 Plt Count 246 MPV 9.8 Immature Gran % (Auto) 0.4 Neut % (Auto) 64.4 Lymph % (Auto) 26.5 Sharkey % (Auto) 7.7 Eos % (Auto) 0.6 Baso % (Auto) 0.4 Immature Gran # (Auto) 0.03 H Neut # (Auto) 5.03 Lymph # (Auto) 2.07 Sharkey # (Auto) 0.60 H Eos # (Auto) 0.05 Baso # (Auto) 0.03 PT 10.5 INR 1.0 APTT 28.1 PTT Ratio 1.0 Activ Coag Time Kaolin POC Sodium Sodium 142 POC Potassium Potassium 4.0 POC Chloride Chloride 111 H Carbon Dioxide 23 POC Total CO2 Anion Gap 8.0 POC Anion Gap POC BUN BUN 13 Creatinine 0.74 POC Creatinine Est Cr Clr Drug Dosing Not Reportable Est GFR ( Amer) 94.5 Est GFR (Non-Af Amer) 81.5 BUN/Creatinine Ratio 17.3 Glucose 115 H POC Glucose POC Glucose (other) Calcium 8.0 L POC Ioniz Calcium Maria E Magnesium 2.0 Total Bilirubin 0.4 AST 21 ALT 22 Alkaline Phosphatase 95 Total Creatine Kinase 66 CK-MB (CK-2) < 1.0 CK/CKMB % Calc TNP Troponin I < 0.015 Total Protein 6.9 Albumin 3.4 Globulin 3.5 Albumin/Globulin Ratio 1.0 Lipase 49 L TSH 0.401 Specimen Hemolysis Nasal Screen MRSA (PCR) 02/15/20 02/15/20 02/15/20 13:40 13:59 15:17 WBC RBC Hgb POC Hgb 13.6 Hct POC Hct 40 MCV MCH MCHC RDW Std Deviation RDW Coeff of Eric Plt Count MPV Immature Gran % (Auto) Neut % (Auto) Lymph % (Auto) Sharkey % (Auto) Eos % (Auto) Baso % (Auto) Immature Gran # (Auto) Neut # (Auto) Lymph # (Auto) Sharkey # (Auto) Eos # (Auto) Baso # (Auto) PT INR APTT PTT Ratio Activ Coag Time Kaolin 323 H POC Sodium 142 Sodium POC Potassium 4.0 Potassium POC Chloride 107 Chloride Carbon Dioxide POC Total CO2 23 L Anion Gap POC Anion Gap 17.0 POC BUN 14 BUN Creatinine POC Creatinine 0.7 Est Cr Clr Drug Dosing Est GFR ( Amer) Est GFR (Non-Af Amer) BUN/Creatinine Ratio Glucose POC Glucose POC Glucose (other) 121 H Calcium POC Ioniz Calcium Maria E 1.06 L Magnesium Total Bilirubin AST ALT Alkaline Phosphatase Total Creatine Kinase CK-MB (CK-2) CK/CKMB % Calc Troponin I Total Protein Albumin Globulin Albumin/Globulin Ratio Lipase TSH Specimen Hemolysis Nasal Screen MRSA (PCR) Pending 02/15/20 15:45 WBC RBC Hgb POC Hgb Hct POC Hct MCV MCH MCHC RDW Std Deviation RDW Coeff of Eric Plt Count MPV Immature Gran % (Auto) Neut % (Auto) Lymph % (Auto) Sharkey % (Auto) Eos % (Auto) Baso % (Auto) Immature Gran # (Auto) Neut # (Auto) Lymph # (Auto) Sharkey # (Auto) Eos # (Auto) Baso # (Auto) PT INR APTT PTT Ratio Activ Coag Time Kaolin POC Sodium Sodium POC Potassium Potassium POC Chloride Chloride Carbon Dioxide POC Total CO2 Anion Gap POC Anion Gap POC BUN BUN Creatinine POC Creatinine Est Cr Clr Drug Dosing Est GFR ( Amer) Est GFR (Non-Af Amer) BUN/Creatinine Ratio Glucose POC Glucose 107 H POC Glucose (other) Calcium POC Ioniz Calcium Maria E Magnesium Total Bilirubin AST ALT Alkaline Phosphatase Total Creatine Kinase CK-MB (CK-2) CK/CKMB % Calc Troponin I Total Protein Albumin Globulin Albumin/Globulin Ratio Lipase TSH Specimen Hemolysis Nasal Screen MRSA (PCR) Medications Administered Current Inpatient Medications Aspirin (Ecotrin Ectab) 81 mg PO QAM SOCRATES Stop: 03/17/20 08:59 Atorvastatin Calcium (Lipitor) 80 mg PO QAM SOCRATES Stop: 03/17/20 08:59 Clopidogrel Bisulfate (Plavix) 75 mg PO QAM SOCRATES Stop: 03/17/20 08:59 Lisinopril (Zestril) 5 mg PO QAM SOCRATES Stop: 03/17/20 08:59 Metoprolol Tartrate (Lopressor) 12.5 mg PO BID SOCRATES Stop: 03/16/20 20:59 Miscellaneous (Icu Protocol For Hyperglycemia) 1 ea N/A PRN PRN; Protocol PRN Reason: Hyperglycemia Protocol Stop: 02/17/20 14:37 Nitroglycerin (Nitrostat) 0.4 mg SL PRN PRN PRN Reason: Chest Pain Stop: 03/16/20 14:49 Ondansetron HCl (Zofran) 4 mg IV Q6H PRN PRN Reason: Nausea And Vomiting Stop: 03/16/20 14:49 Code Status & VTE Plan VTE Prophylaxis Plan VTE Prophylaxis will be ordered: Yes PG Care Time/CCT Total # of Minutes Spent Total Time Spent with Patient: Total time spent is greater than 50% in coordination of care (as documented) at patient's floor/unit and/or counseling patient: Coding Level of Care Code 62584 Initial Inpt Care Lvl 3 Diagnoses STEMI (ST elevation myocardial infarction) I21.3 S/P right coronary artery (RCA) stent placement Z95.5 Radicular pain of both lower extremities M54.10 Lumbar disc herniation M51.26
[2020-02-15 18:06] LABS: Appearance Urine Clear (Clear); Bilirubin Urine Negative (Negative); Blood Urine Negative (Negative); Color Urine Yellow; Glucose Urine UA Negative (Negative); Ketones Urine Negative (Negative); Leukocyte Esterase Urine Negative (Negative); Nitrite Urine Negative (Negative); Protein Urine Negative (Negative); Specific Gravity Urine 1.013 (1.000-1.030); Urobilinogen Urine Negative (Negative)
[2020-02-15] MEDS: METOPROLOL TARTRATE 25 MG TAB PO SCH (21:18)
[2020-02-15] MEDS: MoRPHine SULFATE 2 MG/ML CARP IV PRN (21:39)
[2020-02-16] MEDS: MoRPHine SULFATE 2 MG/ML CARP IV PRN ×3 (00:24→20:34)
[2020-02-16 02:42] LABS: Basophils # (auto) 0.02 K/uL (0-0.2); Basophils % (auto) 0.2 %; Hematocrit (blood only) 39.4 % (37-47); Hemoglobin 12.9 g/dL (12.0-16.0); Immature Granulocytes # (auto) 0.04 K/uL (0.00-0.02); Immature Granulocytes % (auto) 0.3 %; Lymphocytes # (auto) 1.63 K/uL (1.2-3.4); Lymphocytes % (auto) 13.4 %; Mean Corpuscular Hemoglobin 30.1 pg (25-34); Mean Corpuscular Hgb Conc 32.7 g/dL (32-36); Mean Corpuscular Volume 91.8 fL (80-100); Mean Platelet Volume 9.5 fL (7.4-10.4); Monocytes # (auto) 0.92 K/uL (0.11-0.59); Monocytes % (auto) 7.6 %; Neutrophils # (auto) 9.51 K/uL (1.4-6.5); Neutrophils % (auto) 78.5 %; Platelet Count 228 K/uL (130-400); RDW Coefficient of Variation 13.4 % (11.5-14.5); RDW Standard Deviation 44.7 fL (36.4-46.3); Red Blood Count 4.29 M/uL (4.2-5.4); White Blood Count 12.12 K/uL (4.8-10.8)
--- NOTE | 2020-02-16 06:34 | Electrocardiogram Report ---
Test Reason : Blood Pressure : / mmHG Vent. Rate : 081 BPM Atrial Rate : 064 BPM P-R Int : 000 ms QRS Dur : 076 ms QT Int : 388 ms P-R-T Axes : 000 081 106 degrees QTc Int : [address] elevation consider inferior injury or acute infarct ACUTE TX / STEMI Consider right ventricular involvement in acute inferior infarct Abnormal ECG No previous ECGs available Confirmed by Edwin Rapp ([id number]) on 02/16/2020 6:33:48 AM Referred By: REFERRED SELF Confirmed By:Edwin Rapp
--- NOTE | 2020-02-16 06:48 | Electrocardiogram Report ---
Test Reason : Blood Pressure : / mmHG Vent. Rate : 069 BPM Atrial Rate : 069 BPM P-R Int : 148 ms QRS Dur : 074 ms QT Int : 446 ms P-R-T Axes : 067 051 017 degrees QTc Int : 477 ms Normal sinus rhythm Normal ECG When compared with ECG of 15-FEB-2020 13:35, Sinus rhythm has replaced Atrial fibrillation ST no longer elevated in Inferior leads ST no longer depressed in Lateral leads Nonspecific T wave abnormality now evident in Inferior leads T wave inversion no longer evident in Lateral leads Confirmed by Edwin Rapp ([id number]) on 02/16/2020 6:48:33 AM Referred By: REFERRED SELF Confirmed By:Edwin Rapp
[2020-02-16] MEDS ORDERED: TROLAMINE SALICYLATE 10% CRM 255 APPLN/85 GM TUBE EXT PRN ×2 (07:57→08:30)
[2020-02-16] MEDS: ATORVASTATIN 40 MG TAB PO SCH (08:16)
[2020-02-16] MEDS: METOPROLOL TARTRATE 25 MG TAB PO SCH ×2 (08:16→20:35)
[2020-02-16] MEDS: ASPIRIN 81 MG ECTAB PO SCH (08:16)
[2020-02-16] MEDS: CLOPIDOGREL BISULFATE 75 MG TAB PO SCH (08:16)
[2020-02-16] MEDS: lisinopriL 5 MG TAB PO SCH (08:16)
[2020-02-16 08:51] LABS: BUN Creatinine Ratio 17.2 (10-20); Calcium 8.8 mg/dl (8.5-10.1); Creatinine Clr Calc Pharmacy 53.3 ml/min; Est GFR (Non-African American) 82.9; Magnesium 2.1 mg/dl (1.8-2.4); Phosphorus 2.8 mg/dl (2.5-4.9); Potassium 3.8 mmol/L (3.5-5.1)
[2020-02-16] MEDS ORDERED: PERFLUTREN LIPID MICROSPHERE (DEFINITY) IV ONE (09:23)
--- NOTE | 2020-02-16 09:26 | Hospitalist Progress Note ---
Date of Service February 16, 2020 Assessment & Plan (1) STEMI (ST elevation myocardial infarction): EKG with evidence of STEMI in right coronary distribution, ST depression in V1, V2 with reciprocal changes 02/15/20: emergent LHC with ANGIE in the RCA, 100% occlusion Plavix, aspirin, Lipitor 80mg, Lisinopril 5mg daily, metoprolol 12.5mg BID routine echocardiogram today to assess function, follow up results admitted to ICU with cardiology and ICU following will transfer to PCU today, she is stable (2) S/P right coronary artery (RCA) stent placement: ANGIE to the RCA on aspirin and Plavix (3) Radicular pain of both lower extremities: chronic issue, takes Morphine chronically (4) Lumbar disc herniation: patient not interested in surgery follows for pain control Admission and Anticipated Discharge Date Admission Date: February 15, 2020 Subjective mild right sided chest pain more significant pain is in her back, low back, chronic issue, she requests Icy Hot as it helps her at home no dyspnea she did have some nausea this morning, received zofran, still did not want to eat breakfast discussed with Dr. George, she is doing well, will move to PCU reviewed labs, WBC 12, Hb normal, Cr 0.73 and electrolytes stable, troponin 13.3 Review of Systems Review of Systems: All systems reviewed & are unremarkable except as noted in HPI & below Respiratory: no cough and no dyspnea Cardiovascular: + chest pain (minimal, right side); no edema Gastrointestinal: + nausea; no abdominal pain, no vomiting, no constipation and no diarrhea/loose stools Musculoskeletal: + back pain (low back) Physical Exam Constitutional: WD/WN, vitals as above Eyes: PERRL, conjunctivae normal, anicteric sclerae ENMT: external ear and nose normal, oropharynx normal Neck: trachea midline, no thyromegaly Respiratory: normal respiratory effort, lungs clear to auscultation Cardiovascular: RRR, no murmur, no edema Gastrointestinal (Abdomen): normal bowel sounds, soft, nontender, no hepatosplenomegaly Musculoskeletal: no cyanosis or clubbing, extremities motor strength 5/5 Skin: no rashes, warm and dry Neurologic: patellar DTR's 2+ bilat, sensation intact and PERRL, EOMI, accommodation nl, no face palsy, no dysarthria Psychiatric: A+Ox3, euthymic affect Lymphatic: no cervical or axillary lymphadenopathy Results & Data Results & Data ([facility]) Vital Signs (Past 12 Hours) Vital Signs Temp Pulse Resp BP Pulse Ox 02/16/20 08:00 36.4 C L 61 18 133/69 96 02/16/20 05:00 36.7 C 56 L 18 02/16/20 04:50 45 L 20 02/16/20 04:41 69 25 H 97 02/16/20 04:30 60 18 02/16/20 04:27 47 L 16 109/60 02/16/20 04:20 47 L 19 02/16/20 04:10 53 L 16 02/16/20 04:00 56 L 16 02/16/20 03:50 47 L 18 02/16/20 03:40 49 L 20 02/16/20 03:30 51 L 19 97 02/16/20 03:27 50 L 19 115/53 L 96 02/16/20 03:20 49 L 18 96 02/16/20 03:10 45 L 20 96 02/16/20 03:00 52 L 20 97 02/16/20 02:50 51 L 16 98 02/16/20 02:47 48 L 20 108/58 L 98 02/16/20 02:40 47 L 16 96 02/16/20 02:30 66 27 H 97 02/16/20 02:20 47 L 19 97 02/16/20 02:10 50 L 20 94 02/16/20 02:00 61 20 96 02/16/20 01:50 63 12 97 02/16/20 01:40 63 23 95 02/16/20 01:30 60 18 96 02/16/20 01:27 67 25 H 133/70 96 02/16/20 01:20 57 L 18 96 02/16/20 01:10 53 L 18 95 02/16/20 01:00 51 L 20 95 02/16/20 00:50 36.7 C 56 L 18 95 02/16/20 00:40 52 L 19 93 02/16/20 00:30 58 L 23 95 02/16/20 00:27 58 L 18 118/75 94 02/16/20 00:20 96 02/16/20 00:10 64 17 96 02/16/20 00:00 58 L 19 96 02/15/20 23:50 60 17 95 06/12/20 23:40 50 L 18 94 02/15/20 23:30 59 L 21 92 02/15/20 23:26 64 23 128/65 92 02/15/20 23:20 60 16 91 02/15/20 23:10 57 L 20 88 L 02/15/20 23:00 69 19 92 02/15/20 22:50 70 26 H 91 02/15/20 22:40 56 L 14 90 02/15/20 22:30 56 L 15 91 02/15/20 22:27 56 L 19 122/65 91 02/15/20 22:20 52 L 20 92 02/15/20 22:10 60 21 87 L 02/15/20 22:00 58 L 21 93 02/15/20 21:50 52 L 20 93 02/15/20 21:40 64 20 93 02/15/20 21:30 58 L 18 91 02/15/20 21:26 60 18 121/70 91 Laboratory Results Laboratory Results - last 24 hr 02/15/20 02/15/20 02/15/20 13:35 13:35 13:35 WBC 7.81 RBC 4.58 Hgb 13.5 POC Hgb Hct 42.9 POC Hct MCV 93.7 MCH 29.5 MCHC 31.5 L RDW Std Deviation 45.2 RDW Coeff of Eric 13.3 Plt Count 246 MPV 9.8 Immature Gran % (Auto) 0.4 Neut % (Auto) 64.4 Lymph % (Auto) 26.5 [place] % (Auto) 7.7 Eos % (Auto) 0.6 Baso % (Auto) 0.4 Immature Gran # (Auto) 0.03 H Neut # (Auto) 5.03 Lymph # (Auto) 2.07 [place] # (Auto) 0.60 H Eos # (Auto) 0.05 Baso # (Auto) 0.03 PT 10.5 INR 1.0 APTT 28.1 PTT Ratio 1.0 Activ Coag Time Kaolin POC Sodium Sodium 142 POC Potassium Potassium 4.0 POC Chloride Chloride 111 H Carbon Dioxide 23 POC Total CO2 Anion Gap 8.0 POC Anion Gap POC BUN BUN 13 Creatinine 0.74 POC Creatinine Est Cr Clr Drug Dosing Not Reportable Est GFR ( Amer) 94.5 Est GFR (Non-Af Amer) 81.5 BUN/Creatinine Ratio 17.3 Glucose 115 H POC Glucose POC Glucose (other) Calcium 8.0 L POC Ioniz Calcium Maria E Phosphorus Magnesium 2.0 Total Bilirubin 0.4 AST 21 ALT 22 Alkaline Phosphatase 95 Total Creatine Kinase 66 CK-MB (CK-2) < 1.0 CK/CKMB % Calc TNP Troponin I < 0.015 Total Protein 6.9 Albumin 3.4 Globulin 3.5 Albumin/Globulin Ratio 1.0 Lipase 49 L TSH 0.401 Specimen Hemolysis Urine Color Urine Appearance Urine pH Ur Specific [place] Urine Protein Urine Glucose (UA) Urine Ketones Urine Blood Urine Nitrite Urine Bilirubin Urine Urobilinogen Ur Leukocyte Esterase Nasal Screen MRSA (PCR) 02/15/20 02/15/20 02/15/20 13:40 13:59 15:17 WBC RBC Hgb POC Hgb 13.6 Hct POC Hct 40 MCV MCH MCHC RDW Std Deviation RDW Coeff of Eric Plt Count MPV Immature Gran % (Auto) Neut % (Auto) Lymph % (Auto) [place] % (Auto) Eos % (Auto) Baso % (Auto) Immature Gran # (Auto) Neut # (Auto) Lymph # (Auto) [place] # (Auto) Eos # (Auto) Baso # (Auto) PT INR APTT PTT Ratio Activ Coag Time Kaolin 323 H POC Sodium 142 Sodium POC Potassium 4.0 Potassium POC Chloride 107 Chloride Carbon Dioxide POC Total CO2 23 L Anion Gap POC Anion Gap 17.0 POC BUN 14 BUN Creatinine POC Creatinine 0.7 Est Cr Clr Drug Dosing Est GFR ( Amer) Est GFR (Non-Af Amer) BUN/Creatinine Ratio Glucose POC Glucose POC Glucose (other) 121 H Calcium POC Ioniz Calcium Maria E 1.06 L Phosphorus Magnesium Total Bilirubin AST ALT Alkaline Phosphatase Total Creatine Kinase CK-MB (CK-2) CK/CKMB % Calc Troponin I Total Protein Albumin Globulin Albumin/Globulin Ratio Lipase TSH Specimen Hemolysis Urine Color Urine Appearance Urine pH Ur Specific [place] Urine Protein Urine Glucose (UA) Urine Ketones Urine Blood Urine Nitrite Urine Bilirubin Urine Urobilinogen Ur Leukocyte Esterase Nasal Screen MRSA (PCR) Negative 02/15/20 02/15/20 02/15/20 15:45 17:51 20:56 WBC RBC Hgb POC Hgb Hct POC Hct MCV MCH MCHC RDW Std Deviation RDW Coeff of Eric Plt Count MPV Immature Gran % (Auto) Neut % (Auto) Lymph % (Auto) [place] % (Auto) Eos % (Auto) Baso % (Auto) Immature Gran # (Auto) Neut # (Auto) Lymph # (Auto) [place] # (Auto) Eos # (Auto) Baso # (Auto) PT INR APTT PTT Ratio Activ Coag Time Kaolin POC Sodium Sodium POC Potassium Potassium POC Chloride Chloride Carbon Dioxide POC Total CO2 Anion Gap POC Anion Gap POC BUN BUN Creatinine POC Creatinine Est Cr Clr Drug Dosing Est GFR ( Amer) Est GFR (Non-Af Amer) BUN/Creatinine Ratio Glucose POC Glucose 107 H POC Glucose (other) Calcium POC Ioniz Calcium Maria E Phosphorus Magnesium Total Bilirubin AST ALT Alkaline Phosphatase Total Creatine Kinase CK-MB (CK-2) CK/CKMB % Calc Troponin I 19.200 H* Total Protein Albumin Globulin Albumin/Globulin Ratio Lipase TSH Specimen Hemolysis Urine Color Yellow Urine Appearance Clear Urine pH 7.0 Ur Specific [place] 1.013 Urine Protein Negative Urine Glucose (UA) Negative Urine Ketones Negative Urine Blood Negative Urine Nitrite Negative Urine Bilirubin Negative Urine Urobilinogen Negative Ur Leukocyte Esterase Negative Nasal Screen MRSA (PCR) 02/16/20 02/16/20 02/16/20 02:29 02:29 08:03 WBC 12.12 H RBC 4.29 Hgb 12.9 POC Hgb Hct 39.4 POC Hct MCV 91.8 MCH 30.1 MCHC 32.7 RDW Std Deviation 44.7 RDW Coeff of Eric 13.4 Plt Count 228 MPV 9.5 Immature Gran % (Auto) 0.3 Neut % (Auto) 78.5 Lymph % (Auto) 13.4 [place] % (Auto) 7.6 Eos % (Auto) 0.0 Baso % (Auto) 0.2 Immature Gran # (Auto) 0.04 H Neut # (Auto) 9.51 H Lymph # (Auto) 1.63 [place] # (Auto) 0.92 H Eos # (Auto) 0.00 Baso # (Auto) 0.02 PT INR APTT PTT Ratio Activ Coag Time Kaolin POC Sodium Sodium 142 POC Potassium Potassium 3.8 POC Chloride Chloride 111 H Carbon Dioxide 24 POC Total CO2 Anion Gap 7.0 POC Anion Gap POC BUN BUN 13 Creatinine 0.73 POC Creatinine Est Cr Clr Drug Dosing 53.3 Est GFR ( Amer) 96.0 Est GFR (Non-Af Amer) 82.9 BUN/Creatinine Ratio 17.2 Glucose 126 H POC Glucose POC Glucose (other) Calcium 8.8 POC Ioniz Calcium Maria E Phosphorus 2.8 Magnesium 2.1 Total Bilirubin AST ALT Alkaline Phosphatase Total Creatine Kinase CK-MB (CK-2) CK/CKMB % Calc Troponin I 13.300 H* Total Protein Albumin Globulin Albumin/Globulin Ratio Lipase TSH Specimen Hemolysis Urine Color Urine Appearance Urine pH Ur Specific [place] Urine Protein Urine Glucose (UA) Urine Ketones Urine Blood Urine Nitrite Urine Bilirubin Urine Urobilinogen Ur Leukocyte Esterase Nasal Screen MRSA (PCR) Medications Administered Current Inpatient Medications [facility]) [facility] [place]: 03/17/20 08:59 Last Admin: 02/16/20 08:16 Dose: 81 mg Documented by: Atorvastatin Calcium (Lipitor) 80 [facility] [place] Stop: 03/17/20 08:59 Last Admin: 02/16/20 08:16 Dose: 80 mg Documented by: Clopidogrel Bisulfate (Plavix) [facility] [place] Stop: 03/17/20 08:59 Last Admin: 02/16/20 08:16 Dose: 75 mg Documented by: Lisinopril (Zestril) 5 [facility] [place] Stop: 03/17/20 08:59 Last Admin: 02/16/20 08:16 Dose: 5 mg Documented by: Metoprolol Tartrate (Lopressor) 12.5 mg PO BID [facility] Stop: 03/16/20 20:59 Last Admin: 02/16/20 08:16 Dose: 12.5 mg Documented by: Miscellaneous (Icu Protocol For Hyperglycemia) 1 ea N/A PRN PRN; Protocol PRN Reason: Hyperglycemia Protocol Stop: 02/17/20 14:37 Morphine Sulfate (Morphine Sulfate) 2 mg IV Q2H PRN PRN Reason: Pain Stop: 02/29/20 21:22 Last Admin: 02/16/20 08:05 Dose: 2 mg Documented by: Nitroglycerin (Nitrostat) 0.4 mg SL PRN PRN PRN Reason: Chest Pain Stop: 03/16/20 14:49 Ondansetron HCl (Zofran) 4 mg IV Q6H PRN PRN Reason: Nausea And Vomiting Stop: 03/16/20 14:49 Last Admin: 02/16/20 08:10 Dose: 4 mg Documented by: Perflutren Lipid Microsphere (Definity) 2 ml IV ONCE ONE Stop: 02/16/20 09:24 Trolamine Salicylate (Myoflex) 1 appln EXT Q6H PRN PRN Reason: Pain Stop: 03/17/20 07:56 PG Care Time/CCT Total # of Minutes Spent Total Time Spent with Patient: Total time spent is greater than 50% in coordination of care (as documented) at patient's floor/unit and/or counseling patient: Coding Level of Care Code 03048 Subseq Hosp Care Lvl 2 Diagnoses STEMI (ST elevation myocardial infarction) I21.11 Involved coronary artery: right coronary artery S/P right coronary artery (RCA) stent placement Z95.5 Radicular pain of both lower extremities M54.10 Lumbar disc herniation M51.26 (1) STEMI (ST elevation myocardial infarction) Involved coronary artery: right coronary artery Qualified Code(s): I21.11 - ST elevation (STEMI) myocardial infarction involving right coronary artery
--- NOTE | 2020-02-16 10:57 | Cardiology Progress Note ---
Date of Service February 16, 2020 Assessment & Plan (1) STEMI (ST elevation myocardial infarction): --Acute mid RCA occlusion pos PCI with ANGIE 2. Preserved LV function with inferior wall motion abnormality 3. Intraprocedure AF 4. Sinus bradycardia 5. Chronic back pain 6. Tobacco abuse Chest pain free Hemodynamically and electrically stable Troponin peaked. LV function preserved No signs of heart failure on exam -- Continue DAPT with ASA and clodpidogrel -- OK with sinus kyle in 40-50s. Continue current metoprolol -- Continue current lisinopril -- Current statin From a cardiac standpoint OK with transfer to telemetry today. Potentially home tomorrow if stable. Admission and Anticipated Discharge Date Admission Date: February 15, 2020 Subjective No chest pain this morning. Primary complaint is chronic back pain. Tele reviewed -- no events Review of Systems Review of Systems: All systems reviewed & are unremarkable except as noted in HPI & below Physical Exam Physical Exam: General: Comfortable, no acute distress Eyes: Sclerae anicteric, extraocular movements intact HENT: Oropharynx clear mucous membranes moist Lungs: Clear to auscultation bilaterally, no rhonchi or wheezes Cardiac: Regular rate and rhythm, no murmurs Abdomen: Soft, nontender Neuro: Nonfocal Psych: Alert orient x3, normal affect and mood Extremities/Vascular: -- 2+ radial bilaterally -- No edema Results & Data ([facility]) Vital Signs (Past 12 Hours) Vital Signs Temp Pulse Resp BP Pulse Ox 02/16/20 10:05 48 L 02/16/20 08:00 97.5 F L 61 18 133/69 96 02/16/20 05:00 98.1 F 56 L 18 02/16/20 04:50 45 L 20 02/16/20 04:41 69 25 H 97 02/16/20 04:30 60 18 02/16/20 04:27 47 L 16 109/60 02/16/20 04:20 47 L 19 02/16/20 04:10 53 L 16 02/16/20 04:00 56 L 16 02/16/20 03:50 47 L 18 02/16/20 03:40 49 L 20 02/16/20 03:30 51 L 19 97 02/16/20 03:27 50 L 19 115/53 L 96 02/16/20 03:20 49 L 18 96 02/16/20 03:10 45 L 20 96 02/16/20 03:00 52 L 20 97 02/16/20 02:50 51 L 16 98 02/16/20 02:47 48 L 20 108/58 L 98 02/16/20 02:40 47 L 16 96 02/16/20 02:30 66 27 H 97 02/16/20 02:20 47 L 19 97 02/16/20 02:10 50 L 20 94 02/16/20 02:00 61 20 96 02/16/20 01:50 63 12 97 02/16/20 01:40 63 23 95 02/16/20 01:30 60 18 96 02/16/20 01:27 67 25 H 133/70 96 02/16/20 01:20 57 L 18 96 02/16/20 01:10 53 L 18 95 02/16/20 01:00 51 L 20 95 02/16/20 00:50 98.1 F 56 L 18 95 02/16/20 00:40 52 L 19 93 02/16/20 00:30 58 L 23 95 02/16/20 00:27 58 L 18 118/75 94 02/16/20 00:20 96 02/16/20 00:10 64 17 96 02/16/20 00:00 58 L 19 96 02/15/20 23:50 60 17 95 02/15/20 23:40 50 L 18 94 02/15/20 23:30 59 L 21 92 02/15/20 23:26 64 23 128/65 92 02/15/20 23:20 60 16 91 02/15/20 23:10 57 L 20 88 L 02/15/20 23:00 69 19 92 PG Care Time/CCT Total # of Minutes Spent Total Time Spent with Patient: Total time spent is greater than 50% in coordination of care (as documented) at patient's floor/unit and/or counseling patient: Coding Level of Care Code 93690 Subseq Hosp Care Lvl 3 Diagnoses STEMI (ST elevation myocardial infarction) I21.11 Involved coronary artery: right coronary artery (1) STEMI (ST elevation myocardial infarction) Involved coronary artery: right coronary artery Qualified Code(s): I21.11 - ST elevation (STEMI) myocardial infarction involving right coronary artery
--- NOTE | 2020-02-16 12:25 | XCELERA ---
[id number]
[2020-02-16] MEDS ORDERED: MELATONIN 3 MG TAB PO PRN (21:42)
[2020-02-17] MEDS: MoRPHine SULFATE 2 MG/ML CARP IV PRN (06:02)
[2020-02-17] MEDS: ATORVASTATIN 40 MG TAB PO SCH (07:35)
[2020-02-17] MEDS: lisinopriL 5 MG TAB PO SCH (07:35)
[2020-02-17] MEDS: ASPIRIN 81 MG ECTAB PO SCH (07:36)
[2020-02-17] MEDS: METOPROLOL TARTRATE 25 MG TAB PO SCH (07:36)
[2020-02-17] MEDS: CLOPIDOGREL BISULFATE 75 MG TAB PO SCH (07:36)
[2020-02-17 07:48] LABS: BUN Creatinine Ratio 21.2 (10-20); Calcium 8.9 mg/dl (8.5-10.1); Creatinine Clr Calc Pharmacy 54.1 ml/min; Est GFR (African American) 97.7; Est GFR (Non-African American) 84.3; Potassium 3.6 mmol/L (3.5-5.1)
[2020-02-17] MEDS ORDERED: MoRPHine SULFATE CR 15 MG TABCR PO SCH (11:00)
--- NOTE | 2020-02-17 11:33 | Discharge Summary ---
Date of Service February 17, 2020 Admission HPI Per Admitting Provider 70 yo female with no known history of coronary disease, only h/o hypothyroidism and chronic low back pain on Morphine, presented to the ED at [facility] via EMS with crushing right sided chest pain. She first experienced the pain last night, thought it was some indigestion, gave no history of exertional angina. The pain went away and she was able to sleep. She ate breakfast this morning, took her to a doctor's visit. She then experienced severe right sided chest pain, radiated to the right arm, dyspnea, nausea. EMS arrived and EKG showed evidence of right sided acute AL. She was rushed to ED at [place] and she was flown to [facility] after heart alert called. Emergent heart cath showed acute total occlusion in RCA, treated with one ANGIE in the RCA. Other vessels were patent. She was transferred to ICU in stable condition. Currently she resting, no chest pain, no dyspnea, no nausea. No fever or chills. Labs reviewed, they are stable. HR in the 80's, BP stable, not requiring any oxygen. Principal Diagnosis ST elevation AL in RCA Discharge Exam Constitutional WD/WN, vitals as above Eyes PERRL, conjunctivae normal, anicteric sclerae ENMT external ear and nose normal, oropharynx normal Neck trachea midline, no thyromegaly Respiratory normal respiratory effort, lungs clear to auscultation Cardiovascular RRR, no murmur, no edema Gastrointestinal (Abdomen) normal bowel sounds, soft, nontender, no hepatosplenomegaly Musculoskeletal no cyanosis or clubbing, extremities motor strength 5/5 Skin no rashes, warm and dry Neurologic patellar DTR's 2+ bilat, sensation intact and PERRL, EOMI, accommodation nl, no face palsy, no dysarthria Psychiatric A+Ox3, euthymic affect Lymphatic no cervical or axillary lymphadenopathy Discharge Data Allergies Allergy/AdvReac Type Severity Reaction Status Date / Time Sulfa (Sulfonamide Allergy Intermediate Rash Verified 02/15/20 15:24 Antibiotics) Consultations 02/15/20 14:03 Consult Java Technical Architect Routine 02/15/20 14:55 Consult Cardiac Rehabilitation Routine Procedures Performed Operation Date: 02/15/20 13:45 Actual Procedures s Cineradiography w/Routine Exam - Levi George MD p Aspiration/PCI w/ANGIE for Stemi - Levi George MD s Cath, Left with Cors and Vent - Levi George MD s Ultrasound Vascular Access - Levi George MD Ordered Studies 02/15/20 13:35 CL Cath Imgs for PACS use only Stat Hospital Course (1) STEMI (ST elevation myocardial infarction): EKG with evidence of STEMI in right coronary distribution, ST depression in V1, V2 with reciprocal changes 02/15/20: emergent LHC with ANGIE in the RCA, 100% occlusion Plavix, aspirin, Lipitor 80mg, Lisinopril 5mg daily, metoprolol 12.5mg BID routine echocardiogram: EF is 55% with hypokinesis in RCA distribution clear for discharge today by cardiology, Dr. George instructions given for new medications knows to follow up with Dr. Rapp in [place] office in two weeks (2) S/P right coronary artery (RCA) stent placement: ANGIE to the RCA on aspirin and Plavix to keep stent patent patient knows that it is very important to take both of these every day (3) Radicular pain of both lower extremities: chronic issue, takes Morphine chronically (4) Lumbar disc herniation: patient not interested in surgery follows for pain control Total Time Total Time Spent Total Time Spent (In Minutes): 32 minutes Total Time Includes: Examination of the Patient (10 minutes of education provided at bedside about medication compliance), Discharge Planning, Medication Reconciliation, Communication With Other Providers (Dr. George) and Other (spoke with over the phone) Discharge Plan Discharge Items Patient Disposition: Home - Self-Care Reason For Visit: STEMI Discharge Diagnosis: ST elevation AL Dyslipidemia Chronic pain Condition on Discharge: Good Goals: take cardiovascular medications as prescribed increase activity as tolerated follow up with cardiology in 2 weeks Activity: Per Instructions section Lifting: None Bathing: No limitations Sexual Activity: Wait until after follow-up appointment Exercise/Sports: Wait until after follow-up appointment Driving/Machine Use: Resume 3 days after discharge Weightbearing: Full weightbearing Non-emergency contact: Primary Care Provider and Hand Rounder Call non-emergency contact if: you have any medication questions Follow-up/Referrals: Edwin Rapp MD [Physician] - (please make appt for 2 weeks at [place] office) PCP,NO [Physician] - Diet: Heart Healthy Addtl Attending Provider Instructions: Medications: note the following new medications - ASPIRIN: over the counter, 81mg daily - PLAVIX: 75mg daily, taken with aspirin, this is essential to keeping your stent open, need to take this every day - LIPITOR: 80mg daily, this is statin which lowers cholesterol and also stabilizes plaques, clinically proven to prevent future heart attacks - METOPROLOL: 12.5mg twice a day, decreases strain/work of the heart - LISINOPRIL: 5mg daily, helps maintain heart function ST elevation AL (heart attack) treated with emergent left heart cath with drug eluting stent placed in the right coronary artery new medications that are prescribed are essential to keeping stent open, preventing future heart attack, maintaining heart function aspirin 81mg daily and Plavix 75mg daily to keep stent open Lipitor 80mg daily to prevent future plaque rupture and heart attacks Metoprolol and Lisinopril to reduce strain on heart muscle and prevent remodeling take these as prescribed please follow up with Dr. Rapp in two weeks, call for appt Chronic pain: continue Morphine as prescribed Pending Studies at Discharge: No Stand-Alone Forms: My [facility], Smoking Cessation Medications and DC Order Prescriptions: New atorvastatin 40 mg Tablet 80 mg PO QAM 30 Days Qty: 60 RF: 3 clopidogrel 75 mg Tablet 75 mg PO QAM 30 Days Qty: 30 RF: 3 nitroglycerin [Nitrostat] 0.4 mg Tablet, Sublingual 0.4 mg sublingual PRN PRN (Reason: chest pain) 30 Days Qty: 60 RF: 1 lisinopril [Zestril] 5 mg Tablet 5 mg PO QAM 30 Days Qty: 30 RF: 3 metoprolol tartrate 25 mg Tablet 12.5 mg PO BID 30 Days Qty: 30 RF: 3 aspirin 81 mg Tablet,Delayed Release (Dr/Ec) 81 mg PO QAM 30 Days Qty: 30 RF: 2 Continued levothyroxine 75 mcg tablet 75 mcg PO DAILYBB RF: 0 lorazepam 1 mg tablet 1 mg PO HS RF: 0 morphine 30 mg tablet extended release 30 mg PO BID RF: 0 Discontinued simvastatin 20 mg tablet 20 mg PO HS RF: 0 Discharge Orders: Discharge Order (Routine); Ordered 02/17/20 Ordered By: Ammon Churchill/Other Patient Handouts: Coronary Stents, Cardiac Catheterization, AFL/Afib, Cardiac Catheterization Dc, Transradial Cardiac Cath Admission Data Admit Date/Time: 02/15/20 14:02 Attending Provider: Ammon Domínguez Admit Provider: Stanton Busch Primary Care Provider: JACKI,JOHNNY Other Providers: Levi George ; Floyd Bergeron Other Interventions: Discharge Summary Assessment (RN) Last Done: 02/17/20 11:41 DC Date/Time DO NOT enter until pt leaves facility: 02/17/20 12:46 Coding Level of Care Code D/C Day Management >30 mins Diagnoses STEMI (ST elevation myocardial infarction) I21.11 Involved coronary artery: right coronary artery S/P right coronary artery (RCA) stent placement Z95.5 Radicular pain of both lower extremities M54.10 Lumbar disc herniation M51.26
--- NOTE | 2020-02-17 12:36 | Cardiology Progress Note ---
Date of Service February 17, 2020 Assessment & Plan (1) STEMI (ST elevation myocardial infarction): --Acute mid RCA occlusion pos PCI with ANGIE 2. Preserved LV function with inferior wall motion abnormality 3. Intraprocedure AF 4. Sinus bradycardia 5. Chronic back pain 6. Tobacco abuse Stable from a cardiac standpoint and okay for discharge today --Home on DAPT with ASA and clodpidogrel --Continue current metoprolol, lisinopril and statin Follow-up with Dr. Rapp as an outpatient in 2 weeks. Admission and Anticipated Discharge Date Admission Date: February 15, 2020 Subjective No chest pain this morning. Primary complaint is chronic back pain. Tele reviewed -- no events Review of Systems Review of Systems: All systems reviewed & are unremarkable except as noted in HPI & below Physical Exam Physical Exam: General: Comfortable, no acute distress Eyes: Sclerae anicteric, extraocular movements intact HENT: Oropharynx clear mucous membranes moist Lungs: Clear to auscultation bilaterally, no rhonchi or wheezes Cardiac: Regular rate and rhythm, no murmurs Abdomen: Soft, nontender Neuro: Nonfocal Psych: Alert orient x3, normal affect and mood Extremities/Vascular: -- 2+ radial bilaterally -- No edema Results & Data ([facility]) Vital Signs (Past 12 Hours) Vital Signs Temp Pulse Resp BP BP Pulse Ox 02/17/20 11:41 97.5 F L 65 19 118/56 L 133/75 93 02/17/20 07:09 97.5 F L 65 19 133/75 93 02/17/20 04:09 97.5 F L 53 L 18 118/56 L 98 PG Care Time/CCT Total # of Minutes Spent Total Time Spent with Patient: Total time spent is greater than 50% in coordination of care (as documented) at patient's floor/unit and/or counseling patient: Coding Level of Care Code 23827 Subseq Hosp Care Lvl 2 Diagnoses STEMI (ST elevation myocardial infarction) I21.11 Involved coronary artery: right coronary artery (1) STEMI (ST elevation myocardial infarction) Involved coronary artery: right coronary artery Qualified Code(s): I21.11 - ST elevation (STEMI) myocardial infarction involving right coronary artery
== END 2020-02-17 12:46 | disposition home or self-care (01) | DRG 247 ==
LOC: CC 13:44 → SUATTDRO 14:02 → 1E 14:02 → 2S 02-16 18:40